=== PATIENT | male | born 1970 | race Caucasian/White ===

== ENCOUNTER 2019-07-11 16:53 | Emergency (ER) | payer SELFPAY ==
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
== END 2019-07-11 18:32 | disposition home or self-care (01) ==
LOC: ERS 16:53
DX: M79.5 Residual foreign body in soft tissue (principal); F17.210 Nicotine dependence, cigarettes, uncomplicated

== ENCOUNTER 2020-01-20 09:52 | Emergency (ER) | payer OTHER, SELFPAY ==
[2020-01-20 18:37] LABS: SARS-CoV-2 MS2 Positive; SARS-CoV-2 N Gene Negative; SARS-CoV-2 S Gene Negative; SARS-CoV-2 orf1ab Negative
== END 2020-01-20 10:26 | disposition home or self-care (01) ==
LOC: ERS 09:52
DX: R05 Cough (principal); F17.210 Nicotine dependence, cigarettes, uncomplicated; Z20.828 Contact with and (suspected) exposure to other viral communicable diseases
CPT/HCPCS: 87635; 99283; U0003